=== PATIENT | male | born 1960 | race Caucasian/White ===

== ENCOUNTER 2021-07-30 00:59 | Day surgery (SDC) | payer BC, SELFPAY ==
[2021-07-18 12:29] VITALS: BMI 36.0
[2021-07-30 11:28] VITALS: BP 173/72; PULSE 62; RESP 20; TEMP 35.9; O2SAT 96; BMI 34.9
[2021-07-30] MEDS: LACTATED RINGERS 1,000 ML 150 ML IV CONT (11:44)
--- NOTE | 2021-07-30 11:51 | WPDGICN ---
Assessment and Plan Assessment and plan (1) Encounter for screening colonoscopy: Code(s): Z12.11 - Encounter for screening for malignant neoplasm of colon Status: Acute Assessment and Plan: Patient presents today for screening colonoscopy. He appears to be at average risk for colon polyps. GI Consult Note Consult date/time: 07/30/21 11:51 HPI: Ochoa Garsia is a 61 year old male Presents for surveillance colonoscopy. Patient states that his current weight appetite bowel movements are normal. Patient denies abdominal pain. He has had no bleeding. Family history is noncontributory. Patient presents today for neoplasia screening colonoscopy. Review of Systems Review of Systems: All systems reviewed & are unremarkable except as noted in HPI and below PMFSH Social History Social History Smoking packs per day: 1 Smoking cigarettes per day: 20.0 Years smoked: 10 Smoking pack-years: 10.00 Smoking status: Former smoker Alcohol intake: current Living arrangements: with family Spiritual care concerns: No Meds Home Medications and Allergies Home Medications Medication Instructions Recorded Confirmed Type allopurinol 200 mg PO DAILY 07/18/21 07/18/21 History amlodipine 10 mg PO DAILY 07/18/21 07/18/21 History furosemide 40 mg PO DAILY 07/18/21 07/18/21 History hydralazine 25 mg PO DAILY 07/18/21 07/18/21 History isosorbide dinitrate 10 mg PO BID 07/18/21 07/18/21 History losartan 100 mg PO DAILY 07/18/21 07/18/21 History nebivolol [Bystolic] 20 mg PO BID 07/18/21 07/18/21 History Allergies Allergy/AdvReac Type Severity Reaction Status Date / Time No Known Allergies NONE Unverified 07/30/21 11:26 Vital Signs Vital Signs - 24 hr 07/30/21 11:28 Temperature 96.7 F L Pulse Rate 62 Respiratory Rate 20 Blood Pressure 173/72 H Pulse Oximetry 96 Exam Narrative: Physical exam reveals patient to be alert. Vital signs stable. HEENT exam is unremarkable. Patient is anicteric. Lungs are clear to auscultation and percussion. Heart is without murmur or extra sounds. Abdominal exam bowel sounds are present soft nontender with no organomegaly. Digital external rectal exam is normal.
--- NOTE | 2021-07-30 12:29 | WPDANESEPPF ---
Anes - Initial Pre Proc Eval Procedure: Operation Date: 07/30/21 13:00 Proposed Procedures p Screening Colonoscopy - Taz Martin MD Date/Time: 07/30/21 12:29 Surgeon: Taz Martin MD Pre Op Diagnosis: neoplasm screening Patient Data Age: 61 Gender: M Height: 1.88 m Weight: 123.3 kg Last Vital Signs Temp 96.7 F L 07/30/21 11:28 Pulse 62 07/30/21 11:28 Resp 20 07/30/21 11:28 BP 173/72 H 07/30/21 11:28 Pulse Ox 96 07/30/21 11:28 Allergies Allergy/AdvReac Type Severity Reaction Status Date / Time No Known Allergies NONE Unverified 07/30/21 11:26 Home Medications Medication Instructions Recorded Confirmed Type allopurinol 200 mg PO DAILY 07/18/21 07/18/21 History amlodipine 10 mg PO DAILY 07/18/21 07/18/21 History furosemide 40 mg PO DAILY 07/18/21 07/18/21 History hydralazine 25 mg PO DAILY 07/18/21 07/18/21 History isosorbide dinitrate 10 mg PO BID 07/18/21 07/18/21 History losartan 100 mg PO DAILY 07/18/21 07/18/21 History nebivolol [Bystolic] 20 mg PO BID 07/18/21 07/18/21 History Patient hx anesthesia problems: none Family hx anesthesia problems: none Results Review: All pre-operative results and documents have been reviewed as part of the pre-operative evaluation. [facility] Past Medical History Medical History (Updated 07/30/21 @ 12:25 by Ronnie Pierre MD) Hypertension PRESLEY (obstructive sleep apnea) Social History Social History Smoking packs per day: 1 Smoking cigarettes per day: 20.0 Years smoked: 10 Smoking pack-years: 10.00 Smoking status: Former smoker Alcohol intake: current Living arrangements: with family Spiritual care concerns: No Anes - Eval Final PreProcedure Day of Procedure 07/30/21 12:29 Patient weight: obese Heart: regular rate and rhythm Lungs: clear to auscultation Airway: Mallampati scale class III Neurological: alert and oriented Last oral intake: >/= 8 hours ASA classification: III Emergent: no Anesthetic plan: proceed Anesthesia type and monitoring: general GIVS and standard monitoring Results Review: All pre-operative results and documents have been reviewed as part of the pre-operative evaluation. Informed Consent: The patient's anesthetic plan and its attendant risks and benefits were discussed with the patient/family/POA. Questions were solicited and answers provided to the satisfaction of the patient/family/POA.
[2021-07-30 12:47] VITALS: BP 123/61; PULSE 55; RESP 22; O2SAT 95
[2021-07-30 12:57] VITALS: BP 141/76; PULSE 55; RESP 21; O2SAT 98
[2021-07-30 13:07] VITALS: BP 156/78; PULSE 52; RESP 26; O2SAT 98
== END 2021-07-30 13:16 | disposition home or self-care (01) ==
PROVIDERS: PCP Nurse Practitioner Family; Visit Provider Internal Medicine Gastroenterology
PROC: 0DJD8ZZ Inspection of Lower Intestinal Tract, Via Natural or Artificial Opening Endoscopic (ICD-10-PCS; CPT 45378; principal; 2021-07-30 13:00)
DX: Z12.11 Encounter for screening for malignant neoplasm of colon (principal); K64.8 Other hemorrhoids; K57.30 Diverticulosis of large intestine without perforation or abscess without bleeding; I10 Essential (primary) hypertension; G47.33 Obstructive sleep apnea (adult) (pediatric); E66.9 Obesity, unspecified; Z68.34 Body mass index [BMI] 34.0-34.9, adult; Z87.891 Personal history of nicotine dependence
CPT/HCPCS: 45378; J7120

== ENCOUNTER 2022-04-16 08:49 | Outpatient (CLI) | payer BC, SELFPAY ==
--- NOTE | 2022-04-16 11:00 | NEURO_ITS ---
Impression: # Complains of numbness of hands. History of previous carpal tunnel release. # Mild bilateral Carpal Tunnel Syndrome. # No ulnar neuropathy. # Normal needle/EMG exam. Nerve Conduction Studies Anti Sensory Summary Table Stim Site NR Peak (ms) P-T Amp (?V) Site1 Site2 Delta-P (ms) Dist (cm) Guido (m/s) Left Median Anti Sensory (2-3nd Digit) Wrist 3.3 23.5 Wrist 2-3nd Digit 3.3 14.0 42 Wrist 3.5 33.5 Wrist 2-3nd Digit 3.3 14.0 42 Right Median Anti Sensory (2-3nd Digit) Wrist 3.2 24.6 Wrist 2-3nd Digit 3.2 14.0 44 Wrist 3.2 11.2 Wrist 2-3nd Digit 3.2 14.0 44 Left Radial Anti Sensory (Base 1st Digit) Wrist 2.2 9.4 Wrist Base 1st Digit 2.2 0.0 Right Radial Anti Sensory (Base 1st Digit) Wrist 2.2 13.2 Wrist Base 1st Digit 2.2 0.0 Left Ulnar Anti Sensory (5th Digit) Wrist 2.4 43.6 Wrist 5th Digit 2.4 14.0 58 Right Ulnar Anti Sensory (5th Digit) Wrist 2.3 53.8 Wrist 5th Digit 2.3 14.0 61 Motor Summary Table Stim Site NR Onset (ms) O-P Amp (mV) Site1 Site2 Delta-0 (ms) Dist (cm) Guido (m/s) Left Median Motor (Abd Poll Brev) Wrist 3.8 1.6 Elbow Wrist 5.0 29.0 58 Elbow 8.8 3.1 Right Median Motor (Abd Poll Brev) Wrist 3.7 1.7 Elbow Wrist 5.4 32.0 59 Elbow 9.1 1.2 Left Ulnar Motor (Abd Dig Minimi) Wrist 2.4 6.2 A Elbow Wrist 5.1 29.0 57 A Elbow 7.5 6.6 Right Ulnar Motor (Abd Dig Minimi) Wrist 2.4 6.2 A Elbow Wrist 5.2 31.0 60 A Elbow 7.6 5.2 F Wave Studies NR F-Lat (ms) L-R F-Lat (ms) Left Median (Mrkrs) (Abd Poll Brev) 30.08 0.88 Right Median (Mrkrs) (Abd Poll Brev) 30.96 0.88 Left Ulnar (Mrkrs) (Abd Dig Min) 30.39 0.45 Right Ulnar (Mrkrs) (Abd Dig Min) 29.94 0.45 EMG Side Muscle Nerve Root Ins Act Fibs Amp Dur Recrt Comment Right 1stDorInt Ulnar C8-T1 Nml Nml Nml Nml Nml Right Ext Indicis Radial (Post Int) C7-8 Nml Nml Nml Nml Nml Right Ext Digitorum Radial (Post Int) C7-8 Nml Nml Nml Nml Nml Right BrachioRad Radial C5-6 Nml Nml Nml Nml Nml Right PronatorTeres Median C6-7 Nml Nml Nml Nml Nml Right Abd Poll Brev Median C8-T1 Nml Nml Nml Nml Nml Left 1stDorInt Ulnar C8-T1 Nml Nml Nml Nml Nml Left Ext Indicis Radial (Post Int) C7-8 Nml Nml Nml Nml Nml Left Ext Digitorum Radial (Post Int) C7-8 Nml Nml Nml Nml Nml Left BrachioRad Radial C5-6 Nml Nml Nml Nml Nml Left PronatorTeres Median C6-7 Nml Nml Nml Nml Nml Left Abd Poll Brev Median C8-T1 Nml Nml Nml Nml Nml MTDD
== END 2022-04-16 08:50 | disposition home or self-care (01) ==
LOC: ANHNEURO 08:51
PROVIDERS: PCP Nurse Practitioner Family; Visit Provider Nurse Practitioner Family
DX: G56.03 Carpal tunnel syndrome, bilateral upper limbs (principal)
CPT/HCPCS: 95886; 95911

== ENCOUNTER 2022-05-10 23:38 | Emergency (ER) | payer BC, SELFPAY ==
--- NOTE | ~2022-05-10 | CT_ITS ---
EXAMINATION: CT abdomen pelvis wo con DATE: 05/11/2022 01:45 INDICATION: Gross hematuria for 2 hours prior to the appearance of the emergency room. Increased urin mehdi frequency. TECHNIQUE: Computed tomography (CT) of the abdomen and pelvis was performed without intravenous contr ast. Automated exposure control and iterative reconstruction technique were employed. Exam dose: 167 0.30 mGy-cm total exam DLP. COMPARISON: 09/09/2017 CT abdomen pelvis FINDINGS: The lung bases are clear of infiltrate or consolidation. Heart size is within normal limits . No pericardial or pleural effusion. Hepatomegaly. No hepatic, splenic, pancreatic, and adrenal or renal space-occupying mass lesion is ev ident on this limited noncontrast examination. The gallbladder is contracted. No bile duct or pancreatic duct dilatation. Normal caliber of the abdominal aorta. No intraperitoneal or retroperitoneal or pelvic mass lesion or adenopathy or ascites. There is a Van catheter within the largely evacuated urinary bladder, some air in the bladder lumen . Moderate diffuse thickening of the urinary bladder wall. Mild dilatation of the ureters and mild pr ominence of the renal collecting structures, without evidence of any obstructing calculus. Diverticulosis of the right and left colon; no CT evidence of diverticulitis. Normal appendix. No bow el obstruction or intraperitoneal free air. Sclerosis at the right iliac bone which reportedly was previously biopsied with benign results there is also some similar sclerosis of the posteromedial left iliac bone degenerative change at the sacroi liac joints. Diffuse idiopathic skeletal hyperostosis of the thoracic spine. Mildly severe degenerative disc disea se and minimal retrolisthesis at L5-S1. IMPRESSION: Nonspecific mild dilatation of the ureters and mild prominence of the renal collecting s ystems, without obstructing calculus Van catheter within urinary bladder Moderate thickening and urinary bladder wall Hepatomegaly Normal appendix Reviewed, dictated and finalized at [facility]. Reviewed, dictated and finalized at [facility]. IMPRESSION: Nonspecific mild dilatation of the ureters and mild prominence of the renal collecting systems, without obstructing calculus Van catheter within urinary bladder Moderate thickening and urinary bladder wall Hepatomegaly Normal appendix
[2022-05-10 23:44] VITALS: BP 193/110; PULSE 95; RESP 20; TEMP 36.6; O2SAT 97
--- NOTE | 2022-05-11 00:17 | ED.GENADULT ---
HPI - General Adult General Chief complaint: Urogenital-Male Stated complaint: hematuria, genital pain Time Seen by Provider: 05/10/22 23:55 History of Present Illness HPI narrative: Patient is a 62-year-old gentleman who presents the emergency department with chief complaint of hematuria and inability to urinate. Patient reports has had a prostatectomy in the past and reports that he noticed he started having blood in his urine and now feels as though he cannot urinate. The patient reports that that now at this point he is unable to urinate and feels as though his bladder is about to explode. Patient reports symptoms or not improved by anything Related Data Home Medications Medication Instructions Recorded Confirmed allopurinol 100 mg tablet 200 mg PO DAILY 07/18/21 07/18/21 amlodipine 10 mg tablet 10 mg PO DAILY 07/18/21 07/18/21 furosemide 40 mg tablet 40 mg PO DAILY 07/18/21 07/18/21 hydralazine 25 mg tablet 25 mg PO DAILY 07/18/21 07/18/21 isosorbide dinitrate 10 mg tablet 10 mg PO BID 07/18/21 07/18/21 losartan 100 mg tablet 100 mg PO DAILY 07/18/21 07/18/21 nebivolol 20 mg tablet (Bystolic) 20 mg PO BID 07/18/21 07/18/21 Allergies Allergy/AdvReac Type Severity Reaction Status Date / Time No Known Allergies NONE Verified 05/10/22 23:57 Review of Systems Review of Systems: A 10 system review of systems was completed on the patient and is negative except for what is stated in the HPI. Nursing and ancillary documentation was reviewed. PMFSH Past Medical History Medical History Hypertension PRESLEY (obstructive sleep apnea) Social History Social History Smoking packs per day: 1 Smoking cigarettes per day: 20.0 Years smoked: 10 Smoking pack-years: 10.00 Smoking status: Former smoker Alcohol intake: current Spiritual care concerns: No Exam Narrative: GENERAL: Well-appearing, well-nourished, and in no acute distress. HEAD: Normocephalic, atraumatic. EYES: PERRLA and EOMI. ENT: Nares clear, no rhinorrhea or epistaxis. Mucous membranes moist. NECK: Supple. CHEST: Clear to auscultation. No respiratory distress. HEART: Regular rate and rhythm. No murmur heard. Normal peripheral pulses. ABDOMEN: Soft, tenderness to palpation of the suprapubic region with a palpable distended bladder nondistended, normal active bowel sounds. EXTREMITIES: Normal range of motion. No edema. SKIN: Warm, dry, no rash. NEURO: No focal deficits. Alert and oriented x3. PSYCH: Normal mood and affect. Course Course Emergency Course: After the Van was placed the patient was able to drain over 600 mL of urine out the urine has changed to a pink lemonade color at this time no clots are being passed. CT scan of the abdomen pelvis shows some mild hydro most likely consistent with a bladder outlet obstruction that has been corrected Van catheter will be left in place the patient will be switched to a leg bag and the patient will be referred to urology Vital Signs Vital signs: Vital Signs Temperature 36.6 C 05/10/22 23:44 Pulse Rate 95 05/10/22 23:44 Respiratory Rate 20 05/10/22 23:44 Blood Pressure 193/110 H 05/10/22 23:44 Pulse Oximetry 97 05/10/22 23:44 Oxygen Delivery Room Air 05/10/22 23:44 Temperature 36.6 C 05/10/22 23:44 Pulse Rate 58 L 05/11/22 02:42 Respiratory Rate 14 05/11/22 02:42 Blood Pressure 142/66 H 05/11/22 02:42 Pulse Oximetry 95 05/11/22 02:42 Oxygen Delivery Room Air 05/10/22 23:44 Medical Decision Making Vital Signs Vital Signs: Vital Signs Temperature 36.6 C 05/10/22 23:44 Pulse Rate 95 05/10/22 23:44 Respiratory Rate 20 05/10/22 23:44 Blood Pressure 193/110 H 05/10/22 23:44 Pulse Oximetry 97 05/10/22 23:44 Oxygen Delivery Room Air 05/10/22 23:44 Temperature 36.6 C 05/10/22 23:44 Pulse Rate 58
[2022-05-11 00:35] LABS: Basophils Absolute Auto 0.1 K/mm3 (0.0-0.1); Basophils Percent Auto 0.7 % (0.2-1.2); Eosinophils Absolute Auto 0.1 K/mm3 (0-0.3); Hematocrit 44.4 % (42.0-52.0); Hemoglobin 15.5 g/dL (14.0-18.0); Immature Granulocyte Absolute 0.08 K/mm3 (0.00-0.031); Immature Granulocyte Percent A 0.8 % (0-0.5); Lymphocytes Absolute Auto 0.93 K/mm3 (0.9-3.2); Lymphocytes Percent Auto 9.3 % (18.3-44.2); Mean Corpuscular HGB Conc 34.9 g/dl (32-36); Mean Corpuscular Hemoglobin 30.7 pg (26-34); Mean Corpuscular Volume 87.9 fl (80-100); Mean Platelet Volume 9.6 fl (7.4-10.4); Monocytes Absolute Auto 0.6 K/mm3 (0.1-0.6); Monocytes Percent Auto 5.8 % (2.6-8.5); Neutrophils Absolute Auto 8.2 K/mm3 (1.3-6.7); Neutrophils Percent Auto 82.4 % (45.5-73.1); Platelet Count Result 171 k/mm3 (150-375); Red Blood Count 5.05 M/mm3 (4.6-6.20); Red Cell Distribution Width 14.1 % (11.5-14.5)
[2022-05-11 00:37] VITALS: BP 164/76; PULSE 66; RESP 16; O2SAT 95
[2022-05-11] MEDS: SODIUM CHLORIDE 0.9% IV 1,000 ML 999 ML IV CONT (00:37)
[2022-05-11] MEDS: ONDANSETRON INJ 4 MG/2 ML VIAL IV PUSH (00:37)
[2022-05-11 00:45] LABS: INR 0.9; Partial Thromboplastin Time 24.9 SECONDS (22.3-36.8); Prothrombin Time 12.2 Seconds (11.1-14.7)
[2022-05-11 00:46] LABS: Alanine Aminotransferase 41 U/L (6-50); Albumin Level 4.2 g/dL (3.5-5.1); Alkaline Phosphatase 86 U/L (38-126); Anion Gap 9 mmol/L (8-16); Aspartate Amino Transferase 28 U/L (17-59); Bilirubin,Total 0.2 mg/dL (0.2-1.3); Blood Urea Nitrogen 24 mg/dL (9-20); Calcium 9.2 mg/dL (8.4-10.2); Carbon Dioxide 26 mmol/L (22-30); Chloride 106 mmol/L (98-107); Estimated CRCL calculation 55 ml/min; Estimated Glomerular Filt Rate 39; Glucose 143 mg/dL (65-110); Potassium 3.7 mmol/L (3.4-5.0); Sodium 141 mmol/L (137-145)
[2022-05-11 01:19] LABS: RBC Urine >75 /hpf (0-2); Squamous Epithelial Cell Urine Moderate /hpf (Few); WBC Urine 0-3 /hpf
[2022-05-11 01:32] LABS: Add Urine Microscopic? YES
[2022-05-11 01:33] LABS: Appearance Urine Clear (Clear); Color Urine Brown (Yellow); pH Urine 6.5 (5.0-9.0)
[2022-05-11 01:36] LABS: Glucose Urine UA Negative (Negative); Protein Urine Trace mg/dL (Negative); Specific Grav Ur 1.025 (1.001-1.035)
[2022-05-11 01:37] LABS: Bilirubin Urine Trace (Negative); Blood Urine 3+ (Negative); Ketones Urine Trace mg/dL (Negative); Leukocyte Esterase Ur Trace LEU/UL (Negative); Nitrate Urine Negative (Negative); Urobilinogen Urine 0.2 mg/dL (<2.0)
[2022-05-11 01:47] VITALS: BP 171/78; PULSE 66; RESP 16; O2SAT 96
[2022-05-11 02:42] VITALS: BP 142/66; PULSE 58; RESP 14; O2SAT 95
== END 2022-05-11 03:20 | disposition home or self-care (01) ==
PROVIDERS: Emergency Provider Emergency Medicine; PCP Nurse Practitioner Family
DX: R31.9 Hematuria, unspecified (principal); R33.9 Retention of urine, unspecified; I10 Essential (primary) hypertension; Z90.79 Acquired absence of other genital organ(s); G47.33 Obstructive sleep apnea (adult) (pediatric); Z87.891 Personal history of nicotine dependence
CPT/HCPCS: 36415; 51702; 74176; 80053; 81001; 85025; 85610; 85730; 96361; 96374; 99284; J2405; J7030

== ENCOUNTER 2022-05-28 08:46 | Outpatient (CLI) | payer BC, SELFPAY ==
--- NOTE | 2022-05-28 08:53 | ECG_ITS ---
Measurements Intervals [place] Rate: 87 P: 27 NV: 181 QRS: -1 QRSD: 162 T: 27 QT: 360 QTc: 434 Interpretive Statements SINUS RHYTHM RIGHT BUNDLE BRANCH BLOCK MODERATE ST AND T-WAVE ABNORMALITY, CONSIDER LATERAL ISCHEMIA ABNORMAL ECG NO PREVIOUS ECG AVAILABLE FOR COMPARISON Electronically Signed On 05-28-2022 12:46:25 CDT by Jordi Walker M.D.
== END 2022-05-28 08:47 | disposition home or self-care (01) ==
LOC: ANHSURGERY 08:51
PROVIDERS: PCP Nurse Practitioner Family; Visit Provider Urology
DX: Z01.810 Encounter for preprocedural cardiovascular examination (principal); I45.10 Unspecified right bundle-branch block; I10 Essential (primary) hypertension
CPT/HCPCS: 93005

== ENCOUNTER 2022-05-29 00:04 | Day surgery (SDC) | payer BC, SELFPAY ==
[2022-05-27 13:58] VITALS: BMI 34.7
--- NOTE | 2022-05-27 14:08 | PC.NURSE ---
Report to the Outpatient Waiting Room, entrance under the green pavilion located off [facility], at time 11:00 on date 05/29/22. OR Time: 1:00. - You and your visitor will be asked a series of questions to screen for COVID 19 for your protection. - Only one visitor is allowed at this time. - The patient visitor is requested to leave or wait in car when not with patient. - A mask is required within the hospital. Patients may have clear liquids (water, carbonated beverages, clear teas, apple juice) until 3 hours prior to surgery (10:00) with a maximum of 20 ounces. - No food from midnight until time of surgery Take the following medications with a SIP of water the morning of surgery: ALLOPURINOL, AMLODIPINE, CIPRO, HYDRALAZINE, ISOSORBIDE, NEBIVOLOL Medications to discontinue per physician: N/A Date to take last dose: N/A Please no make-up, nail turkish, hairspray, perfume, deodorant, or body powder the day of surgery. No jewelry (including any body piercings) or valuables the day of surgery, leave them at home. Please take a shower or bath the night before, or the morning of, surgery with an antibacterial soap. Wear comfortable, loose fitting clothing. - Jewelry must be removed prior to entering the operating room. Rings and piercings that are not removed may be cut off. - The hospital will not accept responsibility for valuables. - Please leave all valuables, including medications, at home the day of surgery. If you are going home after surgery, a licensed bus van driver must drive you home. - NO public transportation without another adult. - We recommend that an adult stay with you for 24 hours following discharge. - We also recommend that you do not drive, make important decision, drink alcoholic beverages, or take any drugs that were not prescribed by your health care provider for at least 24 hours after your discharge time. Follow any additional instructions given to you from your surgeon. If you or anyone in your household have experienced Covid symptoms in the past week, please notify your surgeon or the nurse liaison at the phone number below for possible testing. Telephone instructions given to PT - ROYA JAIN and asked if any additional questions and then verbalized understanding. Patient advised to call surgeon office or pre surgery nurse liaison [phone] if any additional questions.
--- NOTE | 2022-05-28 10:43 | WPDANESEPPF ---
Anes - Initial Pre Proc Eval Procedure: Operation Date: 05/29/22 13:00 Proposed Procedures p Cystoscopy, Clot Evacuation, Bladder Biopsy, Bilateral Retrograde Pyelogram - Ochoa Craven MD Date/Time: 05/28/22 10:43 Surgeon: Ochoa Craven MD Pre Op Diagnosis: gross hematuria Patient Data Age: 62 Gender: M Height: 1.88 m Weight: 122.47 kg Allergies Allergy/AdvReac Type Severity Reaction Status Date / Time No Known Allergies NONE Verified 05/27/22 13:56 Home Medications Medication Instructions Recorded Confirmed Type allopurinol 100 mg tablet 200 mg PO DAILY 07/18/21 05/27/22 History amlodipine 10 mg tablet 10 mg PO DAILY 07/18/21 05/27/22 History furosemide 40 mg tablet 40 mg PO DAILY 07/18/21 05/27/22 History hydralazine 25 mg tablet 25 mg PO DAILY 07/18/21 05/27/22 History isosorbide dinitrate 10 mg tablet 10 mg PO BID 07/18/21 05/27/22 History losartan 100 mg tablet 100 mg PO DAILY 07/18/21 05/27/22 History nebivolol 20 mg tablet (Bystolic) 20 mg PO BID 07/18/21 05/27/22 History ciprofloxacin HCl 500 mg tablet 500 mg PO BID 05/27/22 05/27/22 History Patient hx anesthesia problems: none Family hx anesthesia problems: none Results Review: All pre-operative results and documents have been reviewed as part of the pre-operative evaluation. [facility] Past Medical History Medical History (Updated 05/28/22 @ 10:44 by Elbert Sanders MD) Back pain Hypertension PRESLEY (obstructive sleep apnea) Prostate CA Social History Social History Smoking packs per day: 1 Smoking cigarettes per day: 20.0 Years smoked: 10 Smoking pack-years: 10.00 Smoking status: Former smoker Tobacco type: cigarettes Smoking end date: 10/26/06 Additional smoking assessment comments: NOT A DAILY SMOKER Alcohol intake: current Drinks per week: 3 Substance use: never Substance use type: does not use Living arrangements: with family Spiritual care concerns: No Anes - Eval Final PreProcedure Day of Procedure 05/28/22 10:43 Patient weight: obese Heart: regular rate and rhythm Lungs: clear to auscultation Airway: Mallampati scale class III Neurological: alert and oriented Last oral intake: >/= 8 hours ASA classification: III Emergent: no Anesthetic plan: proceed Anesthesia type and monitoring: general LMA and standard monitoring Results Review: All pre-operative results and documents have been reviewed as part of the pre-operative evaluation. Informed Consent: The patient's anesthetic plan and its attendant risks and benefits were discussed with the patient/family/POA. Questions were solicited and answers provided to the satisfaction of the patient/family/POA.
[2022-05-29] VITALS (7 sets, daily range): BP systolic 114–153; BP diastolic 57–76; PULSE 62–70; RESP 16–25; TEMP 36.2–36.7; O2SAT 91–98
--- NOTE | ~2022-05-29 | XR_ITS ---
EXAMINATION: XR retrograde pyelogram BI DATE: 05/29/2022 13:43 INDICATION: Gross hematuria. TECHNIQUE: 120 intraoperative fluoroscopic images of the abdomen and pelvis were obtained. I was not present. Fluoroscopy exposure time was 23 seconds. COMPARISON: CT abdomen and pelvis 05/11/2022 FINDINGS: The bilateral retrograde pyelograms are normal. IMPRESSION: 1. Normal bilateral retrograde pyelograms. Reviewed, dictated and finalized at location [facility].
--- NOTE | 2022-05-29 06:36 | WPDHPUPDATE1 ---
History and Physical Update Update Date/Time: 05/29/22 06:36 History and Physical has been reviewed, including an updated exam of the patient. There are NO changes in the patient's condition. Risks, benefits, and alternatives have been discussed and questions answered. Patient agrees to proceed with procedure.
--- NOTE | 2022-05-29 06:41 | WPDHPUPDATE1 ---
History and Physical Update Update Date/Time: 05/29/22 06:41 History and Physical has been reviewed, including an updated exam of the patient. There are NO changes in the patient's condition. Risks, benefits, and alternatives have been discussed and questions answered. Patient agrees to proceed with procedure.
[2022-05-29] MEDS: LACTATED RINGERS 1,000 ML 30 ML IV CONT (11:32)
--- NOTE | 2022-05-29 14:00 | P.OP_ITS ---
Procedure Note - Detailed Date of Procedure 05/29/22 Pre-op Diagnosis Gross hematuria Post-op Diagnosis Same Procedure Performed Cystoscopy, bilateral retrograde pyelography and bladder biopsy. Surgeon Ochoa Craven MD Findings 1. 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 2. Bilateral trigger rate pyelograms unremarkable Description of Procedure Patient is brought to the operative suite was prepped draped in routine ster ile fashion while in dorsal lithotomy position after the uneventful induction of a general LMA anesthetic. Cystoscopy is undertaken with a 19 F rigid cystoscope. He has evidence of a prior radical prostatectomy without any regrowth of prostatic tissue. 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 The more cephalad portion of bladder mucosa is normal, without hyperemia. No ruben intravesical neoplasm. He has a single orthotopic ureteral orifice bilaterally. Obtain retrograde pyelograms with an 8 F bulb-tipped catheter and there was no apparent obstruction filling defect or other identifiable pathology in the upper urinary tract. I did obtain a couple cold cup biopsies from areas of hyperemia and cauterized the base with a Bugbee electrode. Scopes and wires removed and the patient was taken recovery room good condition. Drains No Packing No Pathology Yes Condition Stable Disposition PACU
== END 2022-05-29 15:25 | disposition home or self-care (01) ==
PROVIDERS: PCP Nurse Practitioner Family; Visit Provider Urology
PROC: 0TCB8ZZ Extirpation of Matter from Bladder, Via Natural or Artificial Opening Endoscopic (ICD-10-PCS; CPT 52001; principal; 2022-05-29 13:00)
DX: R31.0 Gross hematuria (principal); N32.89 Other specified disorders of bladder; Z85.46 Personal history of malignant neoplasm of prostate; Z92.3 Personal history of irradiation; I10 Essential (primary) hypertension; G47.33 Obstructive sleep apnea (adult) (pediatric); Z87.891 Personal history of nicotine dependence; E66.9 Obesity, unspecified; Z68.33 Body mass index [BMI] 33.0-33.9, adult
CPT/HCPCS: 52204; 74420; 88305; A9270; C1758; J1100; J2250; J2405; J2704; J3010; J7120

== ENCOUNTER 2023-03-26 09:59 | Outpatient (CLI) | payer OTHER, SELFPAY ==
--- NOTE | ~2023-03-26 | XR_ITS ---
EXAMINATION: XR lumbar spine 2-3V DATE: 03/26/2023 10:29 INDICATION: Chronic back pain TECHNIQUE: Anteroposterior and lateral views of the lumbar spine, and cone-down lateral view of the l umbosacral junction were obtained. COMPARISON: CT, 05/11/2022 FINDINGS: There is a compression fracture of L2 with approximately 25% loss of anterior vertebral bod y height. There is also an oblique anterior/superior corner fracture of the L2 vertebral body. No add itional fracture is identified. There are 5 mm of anterolisthesis of L4 on L5. The intervertebral dis c spaces are maintained. Small degenerative osteophytes project from the anterior endplates of multip le vertebral bodies. There is multilevel moderate facet joint osteoarthritis. IMPRESSION: 1. Age-indeterminate compression fracture and oblique anterior/superior corner fracture of L2. 2. Mild lumbar spondylosis. Reviewed, dictated and finalized at location [facility].
--- NOTE | ~2023-03-26 | XR_ITS ---
EXAMINATION: XR thoracic spine 2V DATE: 03/26/2023 10:29 INDICATION: Chronic back pain TECHNIQUE: AP, lateral and lateral swimmer's views of the thoracic spine were obtained. COMPARISON: None. FINDINGS: There are bridging osteophytes at multiple levels in the spine, consistent with diffuse idi opathic skeletal hyperostosis (DISH). Bone alignment is normal. There is no fracture. The vertebral b alicia heights are maintained. There is mild loss of intervertebral disc space height throughout the tho racic spine. IMPRESSION: 1. Mild thoracic spondylosis with diffuse idiopathic skeletal hyperostosis (DISH). Reviewed, dictated and finalized at location [facility]. IMPRESSION: 1. Mild thoracic spondylosis with diffuse idiopathic skeletal hyperostosis (DIS H).
--- NOTE | ~2023-03-26 | XR_ITS ---
EXAMINATION:XR cervical spine 4-5V DATE: 03/26/2023 10:29 INDICATION: Chronic neck pain TECHNIQUE: AP, lateral, lateral swimmers and odontoid views of the cervical spine are provided. COMPARISON: None FINDINGS: Alignment is normal. The odontoid process is intact. No fracture is identified. There is mi ld loss of intervertebral disc space height at C5-C6. The vertebral body heights are maintained. Smal l degenerative osteophytes project from the anterior endplates of multiple vertebral bodies. There is multilevel moderate facet joint osteoarthritis. There is mild multilevel uncovertebral joint osteoar thritis. Prevertebral soft tissues are normal. IMPRESSION: 1. Mild cervical spondylosis without acute findings. Reviewed, dictated and finalized at location [facility].
== END 2023-03-26 10:00 | disposition home or self-care (01) ==
PROVIDERS: PCP Nurse Practitioner Family; Visit Provider Nurse Practitioner Family
DX: M47.894 Other spondylosis, thoracic region (principal); M48.14 Ankylosing hyperostosis [Forestier], thoracic region; M47.896 Other spondylosis, lumbar region; S32.020D Wedge compression fracture of second lumbar vertebra, subsequent encounter for fracture with routine healing; X58.XXXD Exposure to other specified factors, subsequent encounter; M47.892 Other spondylosis, cervical region
CPT/HCPCS: 72050; 72070; 72100

== ENCOUNTER 2023-04-24 13:27 | Outpatient (CLI) | payer OTHER, SELFPAY ==
--- NOTE | ~2023-04-24 | MR_ITS ---
EXAMINATION: MR lumbar spine wo con DATE: 04/24/2023 14:11 INDICATION: Lumbar spine compression fracture TECHNIQUE: Magnetic resonance imaging (MRI) of the lumbar spine was performed without intravenous con trast. Sequences included sagittal T2-weighted FSE, sagittal T2-weighted FS FSE, sagittal T1-weighted FSE, and axial T2-weighted FSE. COMPARISON: None FINDINGS: 1-2 mm anterolisthesis L4 on L5. Alignment is otherwise normal. Marrow edema surrounding a linear low signal compression fracture line underlying the centrally depressed superior endplate of the L2 vert ebral body with 20% central vertebral body height loss. Remaining vertebral body heights are normal. T1 hyperintense hemangioma at the left posterior aspect of the L4 vertebral body.. Minimal disc heigh t loss at L4-5. Annular fissure and mild disc height loss at L5-S1. The conus medullaris terminates a t T12-L1. There is normal signal in the caudal spinal cord. Paravertebral soft tissues are unremarkab le. The following disc levels are specifically discussed: T12-L1: Minimal right paracentral disc protrusion. There is mild to moderate left facet joint osteoar thritis. There is no neural foraminal stenosis. There is no central canal stenosis. L1-L2: Disc is mildly bulging. There is mild bilateral facet joint osteoarthritis. There is minimal b ilateral neural foraminal stenosis. There is minimal central canal stenosis. L2-L3: Disc is mildly bulging. There is mild right and minimal left facet joint osteoarthritis. There is mild bilateral neural foraminal stenosis. There is mild central canal stenosis. L3-L4: Disc is mildly bulging. There is mild bilateral facet joint osteoarthritis. There is mild bila teral neural foraminal stenosis. There is mild central canal stenosis. L4-L5: Disc is mildly bulging. There is hypertrophy of the ligamentum flavum. There is severe bilater al facet joint osteoarthritis. There is mild right and mild to moderate left neural foraminal stenosi s. There is mild central canal stenosis. L5-S1: Disc is bulging with annular fissure. There is mild bilateral facet joint osteoarthritis. Ther e is mild bilateral neural foraminal stenosis. There is no central canal stenosis. IMPRESSION: 1. Relatively recent L2 compression fracture with 20% anterior vertebral body height loss. 2. Mild lumbar spondylosis. Reviewed, dictated and finalized at location A. IMPRESSION: 1. Relatively recent L2 compression fracture with 20% anterior vertebral body h eight loss. 2. Mild lumbar spondylosis.
== END 2023-04-24 13:28 | disposition home or self-care (01) ==
PROVIDERS: PCP Nurse Practitioner Family; Visit Provider Nurse Practitioner Family
DX: M48.56XA Collapsed vertebra, not elsewhere classified, lumbar region, initial encounter for fracture (principal); M47.816 Spondylosis without myelopathy or radiculopathy, lumbar region
CPT/HCPCS: 72148

== ENCOUNTER 2023-08-04 13:53 | Outpatient (CLI) | payer OTHER, SELFPAY ==
[2023-08-08 13:09] LABS: Testosterone Free 53.7 pg/mL (35.0-155.0); Testosterone Total 353 ng/dL (250-1100)
== END 2023-08-04 13:54 | disposition home or self-care (01) ==
LOC: ANHGOSHLAB 13:55
PROVIDERS: PCP Nurse Practitioner Family; Visit Provider Anesthesiology Pain Medicine
DX: C61 Malignant neoplasm of prostate (principal); G89.29 Other chronic pain; S32.020K Wedge compression fracture of second lumbar vertebra, subsequent encounter for fracture with nonunion
CPT/HCPCS: 36415; 84402; 84403

== ENCOUNTER 2023-08-08 10:34 | Outpatient (CLI) | payer OTHER, SELFPAY ==
--- NOTE | ~2023-08-08 | DEXA_ITS ---
Bone Density Report Name: ROYA JAIN Age: 63 Sex: Male Ethnicity: White Date of : 1960 Indication: height loss; prior fracture; cancer; Referring Provider: RENARD HYLTON Study: Bone densitometry was performed. Exam Date: August 08, 2023 Accession number: [id number] Bone Density: Region BMD T-score Z-score Classification AP Spine(L1-L4) 1.158 0.6 1.3 Normal Femoral Neck (Left) 0.902 -0.2 0.8 Normal Total Hip (Left) 1.111 0.5 1.0 Normal Femoral Neck (Right) 0.902 -0.2 0.8 Normal Total Hip (Right) 1.069 0.2 0.7 Normal Total Hip Mean 1.090 0.4 0.9 Normal World Health Organization criteria for BMD impression classify patients as: Normal (T-score at or above -1.0), Osteopenia (T-score between -1.0 and -2.5), or Osteoporosis (T-score at or below -2.5). 10-year Fracture Risk: FRAX not reported because: All T-scores for Spine Total, Hip Total, Femoral Neck at or above -1.0 Prior hip or vertebral fracture Clinical Information Provided by Patient: Have had a previous hip or vertebral fracture Has had a low trauma fracture Has the following medical conditions: Cancer Patient maximum height was 72 Drinks caffeinated beverages Impression: The patient has normal bone mass. The patient has risk factors, including: previous fracture. Discussion: INCREASED RISK OF FRACTURE DUE TO HISTORY OF LOW TRAUMA FRACTURE. The patient's previous fracture puts the patient at high risk of a future fracture. In untreated patients, the risk of osteoporotic fracture increases approximately two-fold for each 1.0 SD decrease in T-score. Low bone density is not the only risk factor for fracture; also consider factors such as patient's age, frailty or poor health, risk of falling, risk of injury, previous osteoporotic fracture, family history of osteoporosis, cigarette smoking, low body weight, etc. Not everyone with a low trauma fracture has osteoporosis; osteomalacia and other metabolic bone disorders should also be considered. Patients who have osteoporosis should be evaluated for specific diseases and conditions (secondary causes) that may cause or contribute to bone loss and fracture risk. National Osteoporosis Foundation (NOF) recommends pharmacologic intervention for patients with a prior low trauma hip or vertebral fracture regardless of BMD T-score. The patient should follow a healthful lifestyle (good nutrition with adequate calcium and vitamin D, and appropriate weight-bearing exercise). Follow-Up: Consider a repeat BMD and Vertebral Fracture Assessment (VFA) exam in 2 years or sooner if medically necessary, to reassess this patient's status. Reported by: YADIRA on 08/08/2023 11:11:00 AM. Reviewed, dictated and finalized at location [facility]
== END 2023-08-08 10:35 | disposition home or self-care (01) ==
PROVIDERS: PCP Nurse Practitioner Family; Visit Provider Neurological Surgery
DX: Z13.820 Encounter for screening for osteoporosis (principal)
CPT/HCPCS: 77080